=== PATIENT | female | born 1990 | race Caucasian/White ===

== ENCOUNTER 2016-11-21 01:47 | Emergency (ER) | payer MEDICAID, OTHER ==
[~2016-11-21] VITALS: Ht 175.3 cm; Wt 86.0 kg
[~2016-11-21 01:47] MED LIST: DOCU-144 PO; HYDR-3498 PO
[2016-11-21 02:09] VITALS: Ht 175.3 cm; Wt 86.0 kg
--- NOTE | 2016-11-21 05:57 | RADRPT ---
PROCEDURE: ULTRASOUND PELVIS CLINICAL INDICATION: 26-year-old female with pelvic pain. TECHNIQUE: Multiple sonographic images of the pelvis were obtained utilizing a transabdominal and endovaginal technique. The images were reviewed on a PACS workstation. COMPARISON: None. FINDINGS: The uterus is visualized and measures 8.5 x 3.7 x 5.3 cm. The endometrial echo complex is within nor mal limits and measures 3.5 mm. There is an intrauterine device within the endometrial canal. There is no evidence for free fluid. The right ovary has a normal echotexture and measures 2.9 x 1.8 x 2.2 cm. The left ovary has a normal echotexture and measures 3.3 x 2.3 x 2.4 cm. There is flow identi fied within the ovaries bilaterally. No adnexal masses are noted. IMPRESSION: Intrauterine device. .Prince Colvin MD, Date Time Electronically viewed and signed by .Prince Colvin MD, on 11/21/2016 05:56 .M/
[2016-11-21 06:00] VITALS: BP 117/75; PULSE 75; RESP 18; TEMP 98.7
[2016-11-21] MEDS ORDERED: IBUP-1542 PO (06:01)
--- NOTE | 2016-11-21 07:06 | ERD ---
ER Documentation Chief Complaint Date/Time DATE: 11/21/16 TIME: 07:03 Chief Complaint PELVIC PAIN TODAY W/ VAG BLEED AFTER INTERCOURSE HAS IUD HPI Patient is a 26-year-old female with PMHx of appendectomy who presents to the emergency department with pelvic pain which started approximately 2 hours ago. Patient states that she was having sex with her when she started to have severe pain. Patient states she also had some vaginal bleeding. Patient states the bleeding lasted for approximately 1 hour and has now stopped. Patient states she does have an IUD and she is concerned that it may be displaced. Patient denies any pain with urination, frequency or urgency. Patient denies any fever, chills, nausea, vomiting, abdominal pain, chest pain, shortness of breath, loss of consciousness. Patient states her last period was approximately 1 week ago. ROS All systems reviewed and are negative except as per history of present illness. Medications Home Meds Active Scripts Ibuprofen* (Ibuprofen*) 600 Mg Tablet, 600 MG PO Q6, #30 TAB Prov:YOUSIF BAEZ PA-C 11/21/16 Docusate Sodium* (Colace*) 100 Mg Capsule, 100 MG PO BID Y for constipation, # 20 CAP Prov:SOLE ROBERTS 09/14/15 Hydrocodone Bit/Acetaminophen (Anexsia 5-325 Mg Tablet) 1 Tab Tab, 2 TAB PO Q4H Y for Pain 6-10, #20 TAB Prov:SOLE ROBERTS 09/14/15 Allergies Allergies: Coded Allergies: No Known Drug Allergies (Verified Allergy, Unknown, 09/13/15) PMhx/Soc History of Surgery: No Anesthesia Reaction: No Hx Neurological Disorder: No Hx Respiratory Disorders: No Hx Cardiac Disorders: No Hx Psychiatric Problems: No Hx Miscellaneous Medical Probl: Yes (APPENDICITIS, PRE-DIABETIC) Hx Alcohol Use: No Hx Substance Use: No Hx Tobacco Use: No Smoking Status: Never smoker Physical Exam Vitals Vital Signs Date Time Temp Pulse Resp B/P Pulse Ox O2 Delivery O2 Flow Rate FiO2 11/21/16 06:00 98.7 75 18 117/75 99 Room Air 11/21/16 02:09 98.6 87 20 114/69 99 Physical Exam GENERAL: Well-developed, well-nourished female. Appears in no acute distress. HEAD: Normocephalic, atraumatic. EYES: Pupils are equally reactive bilaterally. EOMs grossly intact. No conjunctival erythema. ENT: Moist mucous membranes. No uvula deviation. No kissing tonsils. NECK: Supple. No meningismus. Normal range of motion of the neck. LUNG: Clear to auscultation bilaterally. No rhonchi, wheezing, rales or coarse breath sounds. HEART: Regular rate and rhythm. No murmurs, rubs or gallops. ABDOMEN: No scars, ecchymosis or rashes noted. Soft, nontender, and nondistended. Positive bowel sounds in all four quadrants. No rebound tenderness , no guarding. (-) McBurney's point tenderness. No CVA tenderness. BACK: No midline tenderness. EXTREMITIES: Equal pulses bilaterally. No peripheral clubbing, cyanosis or edema. No unilateral leg swelling. NEUROLOGIC: Alert and oriented. Moving all four extremities without any difficulty. Normal speech. Steady gait. SKIN: Normal color. Warm and dry. No rashes or lesions. Procedures/MDM ED COURSE: The patient was stable throughout ED course. I kept the patient and/or family informed of laboratory and diagnostic imaging results throughout the ED course. DIAGNOSTIC IMAGING: Read by radiologist. DIAGNOSTIC IMAGING REPORT Patient: DOE SAUNDERS : 1990 Age: 26 Sex: F MR #: [id number] [facility] #: [id number] DOS: 11/21/16 0420 Ordering MD: YOUSIF BAEZ PA-C Location: [facility] Room/Bed: PROCEDURE: ULTRASOUND PELVIS CLINICAL INDICATION: 26-year-old female with pelvic pain. TECHNIQUE: Multiple sonographic images of the pelvis were obtained utilizing a transabdominal and endovaginal technique. The images were reviewed on a PACS workstation. COMPARISON: None. FINDINGS: The uterus is visualized and measures 8.5 x 3.7 x 5.3 cm. The endometrial echo complex is within normal limits and measures 3.5 mm. There is an intrauterine device within the endometrial canal. There is no evidence for free fluid. The right ovary has a normal echotexture and measures 2.9 x 1.8 x 2.2 cm. The left ovary has a normal echotexture and measures 3.3 x 2.3 x 2.4 cm. There is flow identified within the ovaries bilaterally. No adnexal masses are noted. IMPRESSION: Intrauterine device. .Prince Colvin MD, Date Time Electronically viewed and signed by .Prince Colvin MD, MD on 11/21/2016 05:56 .M/ CC: YOUSIF BAEZ PA-C MEDICAL DECISION MAKING: This is a 26-year-old female who presents with pelvic pain 2 hours after having sex. Patient is concerned that her IUD may have been displaced given that she had bleeding. Bleeding has now resolved. Vital signs were reviewed. Patient was afebrile. Urine test was negative. Pelvic ultrasound showed intrauterine device within the endometrial canal. Given these findings, the patient's presentation is most consistent with pelvic pain secondary to recent sexual intercourse. I have a much lower clinical concern for dislodged IUD, cervical tear, , fibroid, uterine prolapse, endometritis, menorrhagia, PID, UTI, pyelonephritis, appendicitis. PRESCRIPTIONS: Ibuprofen DISCHARGE: At this time, patient is stable for discharge and outpatient management. I have instructed the patient to follow-up with his/her primary care physician/ OBGYN in 1-2 days. I have instructed the patient to promptly return to the ER at any time for any new or worsening symptoms including increased pain, nausea, vomiting, vaginal bleeding, weakness or fever. The patient and/or family expressed understanding of and agreement with this plan. All questions were answered. Home care instructions were provided. Departure Diagnosis: Primary Impression: Pelvic pain Condition: Stable Patient Instructions: Pelvic Pain, Unknown Cause Referrals: NAVJOT LOVELL MD (PCP) [facility] Additional Instructions: No sex for 1 week Call your primary care doctor TOMORROW for an appointment during the next 1-2 days.See the doctor sooner or return here if your condition worsens before your appointment time. YOUSIF BAEZ PA-C Nov 21, 2016 07:06
== END 2016-11-21 06:11 | disposition home or self-care (01) ==
LOC: FTE 01:47
DX: R10.2 Pelvic and perineal pain (principal)
CPT/HCPCS: 76856; Z7502

== ENCOUNTER 2018-05-27 16:20 | Emergency (ER) | END 2018-05-27 19:45 | disposition home or self-care (01) ==